=== PATIENT | male | born 1955 | race Caucasian/White ===

== ENCOUNTER 2016-12-06 13:15 | Emergency (ER) | payer OTHER ==
[~2016-12-06] VITALS: Ht 177.8 cm; Wt 108.7 kg
[~2016-12-06 13:15] MED LIST: GLC/500 PO; LISI10TA PO; ROSU5TAB PO
[2016-12-06 13:26] VITALS: TEMP 36.7; Ht 177.8 cm; Wt 108.7 kg
[2016-12-06 14:16] VITALS: O2SAT 99
[2016-12-06] MEDS ORDERED: ASPI81TA28 PO (14:23)
--- NOTE | 2016-12-06 14:32 | DIAGNOSTIC IMAGING REPORT ---
CHEST ONE VIEW PORTABLE CLINICAL HISTORY: Evaluate Fever/Sepsis dyspnea COMPARISON STUDY: No previous studies for comparison. FINDINGS: The bones soft tissues and hemidiaphragms are normal. The cardiomediastinal silhouette is normal. The lungs are clear. The pulmonary vasculature is normal. IMPRESSION: Negative chest. Electronically signed by: Nikos Jules M.D. 12/06/2016 2:30 PM Dictated Date/Time: 12/06/2016 2:30 PM
[2016-12-06 14:42] LABS: BUN/CREATININE RATIO 21.2 (10-20); CALCIUM 9.1 mg/dl (8.5-10.1); CKMB/CK RATIO 1.8 (0-3.0); THYROID STIMULATING HORMONE 1.38 uIu/ml (0.300-4.500)
[2016-12-06] MEDS ORDERED: NovoLIN-R INSULIN PER UNIT CHARGE SC STA (14:48)
[2016-12-06 14:51] LABS: HEMATOCRIT 38.4 % (42-52); MEAN CELL VOLUME 86.9 fL (80-100); MEAN CORPUSCULAR HEMOGLOBIN 32.6 pg (25-34); MEAN CORPUSCULAR HGB CONC 37.5 g/dl (32-36); MEAN PLATELET VOLUME 12.2 fL (7.4-10.4); PLATELET COUNT 137 K/uL (130-400); RED BLOOD COUNT 4.42 M/uL (4.7-6.1); WHITE BLOOD COUNT 4.36 K/uL (4.8-10.8)
[2016-12-06 14:55] LABS: BETA-HYDROXYBUTYRATE 2.29 mg/dL (0.2-2.81)
--- NOTE | 2016-12-06 14:58 | EMERGENCY ROOM VISIT NOTE ---
History Report prepared by Avelina: Joaquina Machado Under the Supervision of: Dr. Jong Nix D.O. First contact with patient: 13:28 Chief Complaint: CHEST PAIN Stated Complaint: SLIGHT CHEST PAINS, TIRED, NUMBNESS IN HAND History of Present Illness The patient is a 61 year old male who presents to the Emergency Room with complaints of persistent left sided chest pain starting 4 days ago. He rates his discomfort as a 4/10 in severity. He cannot recall if the pain has been constant because he has been working. He has not noticed the pain while he was busy with work. He reports that he has been feeling fatigued. He had numbness in the fingers of his left hand which resolved. He believes it might have been because he slept on his hand. He denies any SOB, cough, or fever. He denies any chest pain with exertion. He was recently diagnosed with diabetes. He reports that he has been under increased stress lately. Source of History: patient Onset: 4 days ago Position: chest (left) Symptom Intensity: 4/10 Timing: other (persistent) Associated Symptoms: + fatigue, + numbness (in fingers), No SOB, No cough, No fevers Review of Systems See HPI for pertinent positives & negatives. A total of 10 systems reviewed and were otherwise negative. Past Medical & Surgical Medical Problems: (1) Diabetes (2) Hypertension Family History Cancer Diabetes mellitus Heart disease Hypertension Kidney stone Social History Smoking Status: Never Smoker Alcohol Use: none Drug Use: none Marital Status: Housing Status: lives with family Occupation Status: employed Current/Historical Medications Scheduled Aspirin (Aspirin Ec), 81 MG PO DAILY Lisinopril (Prinivil), 10 MG PO DAILY Metformin Hcl (Glucophage), 500 MG PO DAILY Rosuvastatin Calcium (Crestor), 5 MG PO DAILY Allergies Coded Allergies: No Known Allergies (Verified , 12/06/16) Physical Exam Vital Signs Date Time Temp Pulse Resp B/P Pulse Ox O2 Delivery O2 Flow Rate FiO2 12/06/16 14:36 77 12/06/16 14:16 99 Room Air 12/06/16 13:35 97 Room Air 12/06/16 13:26 36.7 80 20 155/79 97 Room Air Physical Exam CONSTITUTIONAL/VITAL SIGNS: Reviewed / noted above. GENERAL: Non-toxic in appearance. INTEGUMENTARY: Warm, dry, and [place]. HEAD: Normocephalic. EYES: without scleral icterus or trauma. ENT/OROPHARYNX: clear and moist. LYMPHADENOPATHY/NECK: Is supple without lymphadenopathy or meningismus. RESPIRATORY: Lungs clear and equal. CARDIOVASCULAR: Regular rate and rhythm. GI/ABDOMEN: Soft and nontender. No organomegaly or pulsatile mass. No rebound or guarding. Normal bowel sounds. EXTREMITIES: Warm and well perfused. BACK: No CVA tenderness. NEUROLOGICAL: Intact without focal deficits. PSYCHIATRIC: normal affect. MUSCULOSKELETAL: Normally developed with good muscle tone. Medical Decision & Procedures ER Provider Diagnostic Interpretation: X ray results and stated below per my interpretation and radiology interpretation. CHEST ONE VIEW PORTABLE CLINICAL HISTORY: Evaluate Fever/Sepsis dyspnea COMPARISON STUDY: No previous studies for comparison. FINDINGS: The bones soft tissues and hemidiaphragms are normal. The cardiomediastinal silhouette is normal. The lungs are clear. The pulmonary vasculature is normal. IMPRESSION: Negative chest. Electronically signed by: Nikos Jules M.D. 12/06/2016 2:30 PM Dictated Date/Time: 12/06/2016 2:30 PM Laboratory Results 12/06/16 13:50 Red Blood Count 4.42, Mean Corpuscular Volume 86.9, Mean Corpuscular Hemoglobin 32.6, Mean Corpuscular Hemoglobin Concent 37.5, Mean Platelet Volume 12.2 12/06/16 13:50 Test 12/06/16 13:50 12/06/16 13:56 White Blood Count 4.36 K/uL (4.8-10.8) Red Blood Count 4.42 M/uL (4.7-6.1) Hemoglobin 14.4 g/dL (14.0-18.0) Hematocrit 38.4 % (42-52) Mean Corpuscular Volume 86.9 fL (80-100) Mean Corpuscular Hemoglobin 32.6 pg (25-34) Mean Corpuscular Hemoglobin Concent 37.5 g/dl (32-36) Platelet Count 137 K/uL (130-400) Mean Platelet Volume 12.2 fL (7.4-10.4) RDW Standard Deviation 39.7 fL (36.4-46.3) RDW Coefficient of Variation 12.3 % (11.5-14.5) Anion Gap 8.0 mmol/L (3-11) Est Creatinine Clear Calc Drug Dose 94.6 ml/min Estimated GFR () 93.1 Estimated GFR (Non- 80.3 BUN/Creatinine Ratio 21.2 (10-20) Calcium Level 9.1 mg/dl (8.5-10.1) Total Creatine Kinase 116 U/L (39-308) Creatine Kinase MB 2.1 ng/ml (0.5-3.6) Creatine Kinase MB Ratio 1.8 (0-3.0) Beta-Hydroxybutyric Acid 2.29 mg/dL (0.2-2.81) Thyroid Stimulating Hormone (TSH) 1.380 uIu/ml (0.300-4.500) Bedside Troponin I 0.000 ng/ml (0-0.045) Laboratory results as stated above per my review. ECG Indication: chest pain Rate (beats per minute): 83 Rhythm: normal sinus Findings: no ectopy, other (no acute injury) ED Course 1335: Previous medical records were reviewed. The patient was evaluated in room C9. A complete history and physical examination was performed. 1448: Insulin Human Regular 3 units SC. 1500: On reevaluation, the patient is resting comfortably. I discussed the results and findings with the patient. He verbalized agreement of the treatment plan. He was discharged home. Medical Decision the differential was considered includes acute myocardial infarction, acute coronary syndrome, myocarditis, pericarditis, pericardial effusions /tamponad, esophageal perforation, thoracic aortic dissection, pulmonary embolism, pneumonia, pneumothorax, pancreatitis, shingles, acute cholecystitis, perforated abdominal viscus. This is a 61-year-old male who presents to the ED with a chief complaint of left -sided chest pain. The patient states that he has had the pain since this past weekend was states that he sometimes doesn't notice it as it is distractible when he is busy. The patient was advised to come to the ED for evaluation by his family. Other than this, he reports and tiredness. He denied any recent illness or fevers. No shortness of breath. No exertional chest pain or shortness of breath. No focal weakness. His physical exam was normal. His vital signs are normal. Troponin is negative. A chest x-ray did not show acute disease. EKG shows a normal sinus rhythm. Glucose was 385. The BUN is 21. The patient is a diabetic. Metabolic panel was otherwise unremarkable. TSH is normal. CBC is unremarkable. The patient was told the results of the test. He is felt to be stable for discharge. He was advised to follow-up with his PCP for closer evaluation of his blood sugars. Impression Primary Impression: Hyperglycemia Additional Impression: Left sided chest pain Scribe Attestation The scribe's documentation has been prepared under my direction and personally reviewed by me in its entirety. I confirm that the note above accurately reflects all work, treatment, procedures, and medical decision making performed by me. Departure Information Dispostion Home / Self-Care Referrals No Doctor, Assigned (PCP) Patient Instructions Chest Pain - [facility], [facility] Additional Instructions Follow-up with your doctor for further care and evaluation in 1-7 days if symptoms persist. Return to the emergency department for worsening or new symptoms or any concerns. You have been examined and treated today on an emergency basis only. This is not a substitute for, or an effort to provide, complete comprehensive medical care. It is impossible to recognize and treat all injuries or illnesses in a single emergency department visit. It is therefore important that you follow up closely with your doctor. Call as soon as possible for an appointment. Your blood sugar today was 385. This should be less than 150. Talk to your doctor about this. Problem Qualifiers
[2016-12-06 15:15] LABS: BASO % 0.9 %; BASO ABS # 0.04 K/uL (0-0.2); COMPLETE YES; EOS % 0.9 %; GIANT PLATELETS 1+; IG% 0.2 %; LYMPH % 31.2 %; LYMPH ABS # 1.36 K/uL (1.2-3.4); MONO % 5.3 %; NEUT % 61.5 %
[2016-12-06 15:19] VITALS: BP 163/88; PULSE 81; O2SAT 97
== END 2016-12-06 15:20 | disposition home or self-care (01) ==
LOC: C.EDB 13:17 → C.EDC 15:20
DX: R07.9 Chest pain, unspecified (principal); E11.65 Type 2 diabetes mellitus with hyperglycemia; I10 Essential (primary) hypertension; Z80.9 Family history of malignant neoplasm, unspecified; Z83.3 Family history of diabetes mellitus; Z82.49 Family history of ischemic heart disease and other diseases of the circulatory system; Z79.82 Long term (current) use of aspirin; Z79.899 Other long term (current) drug therapy